=== PATIENT | male | born 1955 | race Caucasian/White ===

== ENCOUNTER 2021-09-26 12:55 | Inpatient (IN) ==
[2021-09-26 16:12] LABS: Basophils # 0.1 10*3/uL (0.0-0.2); Basophils % 0.4 % (0.0-0.8); Eosinophils # 0.2 10*3/uL (0.0-0.87); Eosinophils % 1.3 % (0.00-10.9); Hematocrit 49.9 VOL% (42.0-52.0); Hemoglobin 16.3 GM/DL (14.0-18.0); Immature Granulocytes % 0.4 %; Immature Granulocytes Absolute 0.06 #; Lymphocytes # 1.2 10*3/uL (1.4-4.0); Lymphocytes % 8.7 % (21.2-54.2); Mean Corpuscular HGB Conc 32.7 GM/DL (32-36); Mean Corpuscular Volume 88.2 FL (87-102); Mean Platelet Volume 10.7 FL (9.6-12.0); Monocytes # 0.9 10*3/uL (0.11-0.8); Monocytes % 6.7 % (1.7-12.7); Neutrophils % 82.5 % (38.7-73.9); Platelet Count 291 T/CUMM (130-400); Red Blood Count 5.66 MC/CUMM (3.8-5.5); Red Cell Distribution Width 13.3 % (9.3-17.3); White Blood Count 13.6 T/CUMM (4-12)
[2021-09-26] MEDS ORDERED: LACTATED RINGERS 1,000 ML IV ONE (16:24)
[2021-09-26 16:31] LABS: Alanine Aminotransferase 23 U/L (16-61); Albumin 3.9 G/DL (3.4-5.0); Alkaline Phosphatase 103 U/L (45-117); Aspartate Amino Transferase 14 U/L (0-37); Bilirubin,Total < 0.39 MG/DL (0.20-1.00); Blood Urea Nitrogen 26 MG/DL (7-18); Calcium 9.9 MG/DL (8.5-10.1); Carbon Dioxide 32 MMOL/L (21-32); Chloride 105 MMOL/L (98-107); Glucose 139 MG/DL (74-106); Osmolality,Calculated 283.5 MOS/KG (273-304); Potassium 4.1 MMOL/L (3.5-5.1); Sodium 139 MMOL/L (136-145); Total Protein 8.6 G/DL (6.4-8.2)
[2021-09-26] MEDS ORDERED: ONDANSETRON 4 MG/2 ML VIAL IV STA (16:32)
[2021-09-26 16:48] LABS: Arterial Base Excess iSTAT 4 MMOL/L (-2.5-2.5); Arterial Bicarbonate iSTAT 34.5 MMOL/L (20-26); Arterial O2 Saturation iSTAT 94 % (95-100); Arterial PCO2 iSTAT 77 MM HG (35-48); Arterial PO2 iSTAT 87 MM HG (80-95); Arterial Total CO2 iSTAT 37 MMO/L (23-27); Arterial pH iSTAT 7.261 (7.35-7.45)
[2021-09-26] MEDS ORDERED: ALUMINUM/MAGNES/SIMETH MAX STR 30 ML UDCUP PO PRN (17:59)
[2021-09-26] MEDS ORDERED: ONDANSETRON 4 MG/2 ML VIAL IV PRN (17:59)
[2021-09-26] MEDS ORDERED: ALBUTEROL/IPRATROPIUM 3 ML NEB RESP TX PRN (17:59)
[2021-09-26] MEDS ORDERED: BISACODYL 5 MG TABLET PO PRN (17:59)
[2021-09-26] MEDS ORDERED: PROMETHAZINE 25 MG/1 ML VIAL IM PRN (17:59)
[2021-09-26 19:08] LABS: ABG Base Excess 3.5 MMOL/L (-2.5-2.5); ABG HCO3 27.5 MMOL/L (20-26); ABG Oxygen Saturation 97.8 % (95-100); ABG PCO2 67.9 MM HG (35-48); ABG PH 7.294 (7.35-7.45); ABG TCO2 28.6 MMOL/L (23-27)
[2021-09-26] MEDS: LACTATED RINGERS 1,000 ML IV SCH (19:10)
[2021-09-26 19:42] LABS: Barbiturates Screen,Urine Negative (Negative); Benzodiazepines Screen,Urine Negative (Negative); Cannabinoid Screen,Urine Negative (Negative); Opiate Screen,Urine Negative (Negative); Phencyclidine Screen,Urine Negative (Negative)
[2021-09-26] MEDS: cefTRIAXone 1,000 MG in SODIUM CHLORIDE 0.9% 100 ML IV SCH (22:52)
[2021-09-26] MEDS: ENOXAPARIN 40 MG/0.4 ML SYRINGE SUBCUT SCH (22:54)
[2021-09-26] MEDS: PANTOPRAZOLE 40 MG VIAL IV SCH (23:35)
[2021-09-27 05:48] LABS: Alanine Aminotransferase 18 U/L (16-61); Albumin 3.2 G/DL (3.4-5.0); Alkaline Phosphatase 79 U/L (45-117); Aspartate Amino Transferase 13 U/L (0-37); Bilirubin,Total < 0.39 MG/DL (0.20-1.00); Blood Urea Nitrogen 23 MG/DL (7-18); Calcium 9.4 MG/DL (8.5-10.1); Carbon Dioxide 30 MMOL/L (21-32); Chloride 104 MMOL/L (98-107); Cholesterol 111 MG/DL (50-200); Glucose 103 MG/DL (74-106); HDL Cholesterol 43 MG/DL (40-60); Osmolality,Calculated 284.3 MOS/KG (273-304); Potassium 3.5 MMOL/L (3.5-5.1); Risk Ratio 2.58; Sodium 141 MMOL/L (136-145); Total Protein 6.8 G/DL (6.4-8.2); Triglycerides 106 MG/DL (2-150); VLDL Cholesterol 21.2 MG/DL
[2021-09-27 06:22] LABS: Basophils % 0.4 % (0.0-0.8); Eosinophils # 0.1 10*3/uL (0.0-0.87); Eosinophils % 0.6 % (0.00-10.9); Hematocrit 42.2 VOL% (42.0-52.0); Immature Granulocytes % 1.6 %; Immature Granulocytes Absolute 0.15 #; Lymphocytes # 1.4 10*3/uL (1.4-4.0); Lymphocytes % 15.3 % (21.2-54.2); Mean Platelet Volume 11.7 FL (9.6-12.0); Monocytes # 0.9 10*3/uL (0.11-0.8); Monocytes % 9.2 % (1.7-12.7); Neutrophils % 72.9 % (38.7-73.9); Platelet Count 242 T/CUMM (130-400); Red Blood Count 4.74 MC/CUMM (3.8-5.5); Red Cell Distribution Width 13.4 % (9.3-17.3)
[2021-09-27 06:23] LABS: Hemoglobin 13.5 GM/DL (14.0-18.0); White Blood Count 9.4 T/CUMM (4-12)
[2021-09-27] MEDS ORDERED: PANTOPRAZOLE 40 MG TABLET PO SCH (06:30)
[2021-09-27 06:34] LABS: Folate > 24.00 NG/ML (5.38-24.0); Vitamin B12 352 PG/ML (211-911)
[2021-09-27 07:43] LABS: Bacteria,Urine Occasional /HPF (Few); Mucus,Urine Occasional /LPF (Occasional); RBC,Urine 2 /HPF (0-4); Squamous Epithelial Cell,Urine Occasional /HPF (0-10)
[2021-09-27 07:44] LABS: Glucose,Urine (UA) Negative (Negative); Ketones,Urine 40 mg/dL (Negative); Nitrite,Urine Negative (Negative); Protein,Urine Negative (Negative); Urine Appearance Clear (Clear); Urine Color Yellow (Yellow); Urine Specific Gravity 1.025 (1.001-1.035); Urine pH 5.5 (4.5-8.0)
[2021-09-27 07:45] LABS: Bilirubin,Urine Negative (Negative); Blood, Urine Negative (Negative); Urine Urobilinogen 0.2 eU/dL (<2.0)
[2021-09-27] MEDS ORDERED: LACTULOSE 20 GM/30 ML UDCUP PO SCH (09:00)
[2021-09-27] MEDS ORDERED: ROSUVASTATIN 10 MG TABLET PO SCH (09:00)
[2021-09-27] MEDS: ASPIRIN EC 81 MG TABLET PO SCH (10:14)
[2021-09-27] MEDS: MONTELUKAST 10 MG TABLET PO SCH (10:14)
[2021-09-27] MEDS: TAMSULOSIN 0.4 MG CAPSULE PO SCH (10:14)
[2021-09-27] MEDS: amLODIPine 10 MG TABLET PO SCH (10:14)
[2021-09-27] MEDS: acetaZOLAMIDE 250 MG TABLET PO SCH (10:14)
[2021-09-27] MEDS: INDAPAMIDE 2.5 MG TABLET PO SCH (10:17)
[2021-09-27] MEDS: PANTOPRAZOLE 40 MG VIAL IV SCH ×2 (10:20→21:11)
[2021-09-27 11:46] LABS: Arterial Base Excess iSTAT 7 MMOL/L (-2.5-2.5); Arterial Bicarbonate iSTAT 34.9 MMOL/L (20-26); Arterial O2 Saturation iSTAT 97 % (95-100); Arterial PCO2 iSTAT 65 MM HG (35-48); Arterial PO2 iSTAT 100 MM HG (80-95); Arterial Total CO2 iSTAT 37 MMO/L (23-27); Arterial pH iSTAT 7.339 (7.35-7.45)
[2021-09-27] MEDS: LACTATED RINGERS 1,000 ML IV SCH (14:53)
[2021-09-27] MEDS: cefTRIAXone 1,000 MG in SODIUM CHLORIDE 0.9% 100 ML IV SCH (21:15)
[2021-09-27] MEDS: ENOXAPARIN 40 MG/0.4 ML SYRINGE SUBCUT SCH (21:15)
[2021-09-27] MEDS: ROSUVASTATIN 10 MG TABLET PO SCH (21:17)
[2021-09-28] MEDS: LACTATED RINGERS 1,000 ML IV SCH ×4 (00:29→23:16)
[2021-09-28 05:22] LABS: Basophils # 0.1 10*3/uL (0.0-0.2); Basophils % 0.7 % (0.0-0.8); Eosinophils # 0.4 10*3/uL (0.0-0.87); Eosinophils % 5.4 % (0.00-10.9); Hematocrit 37.9 VOL% (42.0-52.0); Hemoglobin 12.1 GM/DL (14.0-18.0); Immature Granulocytes % 0.4 %; Immature Granulocytes Absolute 0.03 #; Lymphocytes # 1.8 10*3/uL (1.4-4.0); Lymphocytes % 26.1 % (21.2-54.2); Mean Corpuscular HGB Conc 31.9 GM/DL (32-36); Mean Corpuscular Volume 88.1 FL (87-102); Mean Platelet Volume 11.2 FL (9.6-12.0); Monocytes # 0.6 10*3/uL (0.11-0.8); Monocytes % 8.8 % (1.7-12.7); Neutrophils % 58.6 % (38.7-73.9); Platelet Count 194 T/CUMM (130-400); Red Cell Distribution Width 13.2 % (9.3-17.3); White Blood Count 7.1 T/CUMM (4-12)
[2021-09-28 05:50] LABS: Albumin 2.7 G/DL (3.4-5.0); Bilirubin,Total 0.4 MG/DL (0.20-1.00); Calcium 8.6 MG/DL (8.5-10.1); Osmolality,Calculated 283.3 MOS/KG (273-304); Potassium 3.2 MMOL/L (3.5-5.1); Total Protein 5.8 G/DL (6.4-8.2)
[2021-09-28] MEDS ORDERED: POTASSIUM CHLORIDE 20 MEQ TABLET PO ONE (07:53)
[2021-09-28] MEDS: TAMSULOSIN 0.4 MG CAPSULE PO SCH (09:34)
[2021-09-28] MEDS: PANTOPRAZOLE 40 MG VIAL IV SCH ×2 (09:34→21:38)
[2021-09-28] MEDS: MONTELUKAST 10 MG TABLET PO SCH (09:35)
[2021-09-28] MEDS: amLODIPine 10 MG TABLET PO SCH (09:35)
[2021-09-28] MEDS: acetaZOLAMIDE 250 MG TABLET PO SCH (09:35)
[2021-09-28] MEDS: INDAPAMIDE 2.5 MG TABLET PO SCH (09:35)
[2021-09-28] MEDS: ASPIRIN EC 81 MG TABLET PO SCH (09:48)
[2021-09-28] MEDS: ROSUVASTATIN 10 MG TABLET PO SCH (21:38)
[2021-09-28] MEDS: ENOXAPARIN 40 MG/0.4 ML SYRINGE SUBCUT SCH (21:38)
[2021-09-28] MEDS: cefTRIAXone 1,000 MG in SODIUM CHLORIDE 0.9% 100 ML IV SCH (21:38)
[2021-09-29] MEDS: LACTATED RINGERS 1,000 ML IV SCH ×3 (00:21→21:20)
[2021-09-29 03:57] LABS: ABG HCO3 25.3 MMOL/L (20-26); ABG Oxygen Saturation 98.2 % (95-100); ABG PCO2 47.7 MM HG (35-48); ABG PH 7.361 (7.35-7.45); ABG TCO2 23.9 MMOL/L (23-27); Allen Test Positive; Pt O2 Delivery Device BIPAP
[2021-09-29 04:59] LABS: Basophils # 0.1 10*3/uL (0.0-0.2); Basophils % 0.9 % (0.0-0.8); Eosinophils # 0.4 10*3/uL (0.0-0.87); Eosinophils % 5.4 % (0.00-10.9); Hemoglobin 12.3 GM/DL (14.0-18.0); Immature Granulocytes % 0.5 %; Immature Granulocytes Absolute 0.03 #; Lymphocytes # 1.8 10*3/uL (1.4-4.0); Mean Corpuscular HGB Conc 32.4 GM/DL (32-36); Mean Corpuscular Volume 87.6 FL (87-102); Mean Platelet Volume 11.1 FL (9.6-12.0); Monocytes # 0.6 10*3/uL (0.11-0.8); Monocytes % 9.5 % (1.7-12.7); Neutrophils % 56.7 % (38.7-73.9); Platelet Count 221 T/CUMM (130-400); Red Blood Count 4.34 MC/CUMM (3.8-5.5); Red Cell Distribution Width 13.2 % (9.3-17.3); White Blood Count 6.5 T/CUMM (4-12)
[2021-09-29 05:45] LABS: Alanine Aminotransferase 17 U/L (16-61); Albumin 2.9 G/DL (3.4-5.0); Alkaline Phosphatase 66 U/L (45-117); Aspartate Amino Transferase 12 U/L (0-37); Bilirubin,Total < 0.39 MG/DL (0.20-1.00); Blood Urea Nitrogen 16 MG/DL (7-18); Calcium 8.6 MG/DL (8.5-10.1); Carbon Dioxide 27 MMOL/L (21-32); Chloride 108 MMOL/L (98-107); Glucose 122 MG/DL (74-106); Osmolality,Calculated 284.1 MOS/KG (273-304); Potassium 3.7 MMOL/L (3.5-5.1); Sodium 142 MMOL/L (136-145); Total Protein 6.3 G/DL (6.4-8.2)
[2021-09-29] MEDS: amLODIPine 10 MG TABLET PO SCH (09:39)
[2021-09-29] MEDS: MONTELUKAST 10 MG TABLET PO SCH (09:39)
[2021-09-29] MEDS: ASPIRIN EC 81 MG TABLET PO SCH (09:39)
[2021-09-29] MEDS: PANTOPRAZOLE 40 MG VIAL IV SCH (09:39)
[2021-09-29] MEDS: acetaZOLAMIDE 250 MG TABLET PO SCH (09:39)
[2021-09-29] MEDS: TAMSULOSIN 0.4 MG CAPSULE PO SCH (09:40)
[2021-09-29] MEDS: INDAPAMIDE 2.5 MG TABLET PO SCH (09:40)
[2021-09-29 11:50] LABS: Thyroid Stimulating Hormone 3.08 uIU/ml (0.358-3.74)
[2021-09-29 12:33] LABS: Hepatitis B Core IgM Quant 0.17 Index; Hepatitis B Surface Ag Quant < 0.10 Index; Hepatitis B Surface Ag Result Non-Reactive (NonReactive); Hepatitis C Virus Ab Quant 0.05 Index; Hepatitis C Virus Ab Result Non-Reactive (NonReactive)
[2021-09-29] MEDS ORDERED: LACTULOSE 20 GM/30 ML UDCUP PO SCH (13:30)
[2021-09-29 13:51] LABS: PT Patient Result 10.9 SECS (10.5-12.0); Partial Thromboplastin Time 30.8 SECS (23.8-32.1)
[2021-09-29] MEDS: DICLOXACILLIN 250 MG CAPSULE PO SCH ×2 (18:34→21:19)
[2021-09-29] MEDS: LACTULOSE 20 GM/30 ML UDCUP PO SCH (21:19)
[2021-09-29] MEDS: ENOXAPARIN 40 MG/0.4 ML SYRINGE SUBCUT SCH (21:19)
[2021-09-29] MEDS: ROSUVASTATIN 10 MG TABLET PO SCH (21:19)
[2021-09-30] MEDS: LACTATED RINGERS 1,000 ML IV SCH ×2 (04:10→06:15)
[2021-09-30 05:52] LABS: Basophils # 0.1 10*3/uL (0.0-0.2); Basophils % 0.9 % (0.0-0.8); Eosinophils # 0.4 10*3/uL (0.0-0.87); Eosinophils % 4.6 % (0.00-10.9); Hematocrit 42.9 VOL% (42.0-52.0); Hemoglobin 14.2 GM/DL (14.0-18.0); Immature Granulocytes % 0.5 %; Immature Granulocytes Absolute 0.04 #; Lymphocytes # 1.8 10*3/uL (1.4-4.0); Lymphocytes % 23.2 % (21.2-54.2); Mean Corpuscular HGB Conc 33.1 GM/DL (32-36); Mean Platelet Volume 10.8 FL (9.6-12.0); Monocytes # 0.7 10*3/uL (0.11-0.8); Neutrophils % 61.8 % (38.7-73.9); Platelet Count 239 T/CUMM (130-400); Red Blood Count 4.93 MC/CUMM (3.8-5.5); Red Cell Distribution Width 13.2 % (9.3-17.3); White Blood Count 7.9 T/CUMM (4-12)
[2021-09-30 06:11] LABS: Alanine Aminotransferase 26 U/L (16-61); Albumin 3.2 G/DL (3.4-5.0); Alkaline Phosphatase 78 U/L (45-117); Aspartate Amino Transferase 17 U/L (0-37); Bilirubin,Total < 0.39 MG/DL (0.20-1.00); Blood Urea Nitrogen 16 MG/DL (7-18); Calcium 9.1 MG/DL (8.5-10.1); Carbon Dioxide 27 MMOL/L (21-32); Chloride 108 MMOL/L (98-107); Glucose 126 MG/DL (74-106); Potassium 3.4 MMOL/L (3.5-5.1); Sodium 143 MMOL/L (136-145); Total Protein 7.2 G/DL (6.4-8.2)
[2021-09-30] MEDS: amLODIPine 10 MG TABLET PO SCH (09:46)
[2021-09-30] MEDS: INDAPAMIDE 2.5 MG TABLET PO SCH (09:46)
[2021-09-30] MEDS: TAMSULOSIN 0.4 MG CAPSULE PO SCH (09:46)
[2021-09-30] MEDS: DICLOXACILLIN 250 MG CAPSULE PO SCH ×3 (09:46→21:28)
[2021-09-30] MEDS: ASPIRIN EC 81 MG TABLET PO SCH (09:46)
[2021-09-30] MEDS: MONTELUKAST 10 MG TABLET PO SCH (09:46)
[2021-09-30] MEDS: PANTOPRAZOLE 40 MG TABLET PO SCH (09:46)
[2021-09-30] MEDS: POTASSIUM CHLORIDE 10 MEQ TABLET PO SCH (09:46)
[2021-09-30] MEDS: acetaZOLAMIDE 250 MG TABLET PO SCH (09:46)
[2021-09-30] MEDS: LACTULOSE 20 GM/30 ML UDCUP PO SCH ×3 (09:47→21:26)
[2021-09-30 13:46] LABS: Antinuclear Ab, S 0.3 U
[2021-09-30] MEDS: ENOXAPARIN 40 MG/0.4 ML SYRINGE SUBCUT SCH (21:27)
[2021-09-30] MEDS: ROSUVASTATIN 10 MG TABLET PO SCH (21:27)
[2021-10-01 04:52] LABS: Basophils % 0.5 % (0.0-0.8); Eosinophils # 0.3 10*3/uL (0.0-0.87); Eosinophils % 3.2 % (0.00-10.9); Hemoglobin 13.9 GM/DL (14.0-18.0); Immature Granulocytes % 0.5 %; Immature Granulocytes Absolute 0.04 #; Lymphocytes # 1.8 10*3/uL (1.4-4.0); Lymphocytes % 22.4 % (21.2-54.2); Mean Corpuscular HGB Conc 32.3 GM/DL (32-36); Mean Corpuscular Volume 87.6 FL (87-102); Mean Platelet Volume 11.2 FL (9.6-12.0); Monocytes # 0.6 10*3/uL (0.11-0.8); Monocytes % 7.3 % (1.7-12.7); Neutrophils % 66.1 % (38.7-73.9); Platelet Count 224 T/CUMM (130-400); Red Blood Count 4.91 MC/CUMM (3.8-5.5); Red Cell Distribution Width 13.3 % (9.3-17.3); White Blood Count 8.1 T/CUMM (4-12)
[2021-10-01 05:15] LABS: Alanine Aminotransferase 33 U/L (16-61); Albumin 3.3 G/DL (3.4-5.0); Alkaline Phosphatase 74 U/L (45-117); Aspartate Amino Transferase 23 U/L (0-37); Bilirubin,Total < 0.39 MG/DL (0.20-1.00); Blood Urea Nitrogen 14 MG/DL (7-18); Calcium 9.3 MG/DL (8.5-10.1); Carbon Dioxide 27 MMOL/L (21-32); Chloride 107 MMOL/L (98-107); Glucose 126 MG/DL (74-106); Osmolality,Calculated 283.3 MOS/KG (273-304); Potassium 3.3 MMOL/L (3.5-5.1); Sodium 141 MMOL/L (136-145); Total Protein 6.8 G/DL (6.4-8.2)
[2021-10-01] MEDS ORDERED: LACTULOSE 20 GM/30 ML UDCUP PO SCH (09:00)
[2021-10-01] MEDS: acetaZOLAMIDE 250 MG TABLET PO SCH (09:01)
[2021-10-01] MEDS: INDAPAMIDE 2.5 MG TABLET PO SCH (09:01)
[2021-10-01] MEDS: TAMSULOSIN 0.4 MG CAPSULE PO SCH (09:01)
[2021-10-01] MEDS: amLODIPine 10 MG TABLET PO SCH (09:01)
[2021-10-01] MEDS: POTASSIUM CHLORIDE 10 MEQ TABLET PO SCH (09:01)
[2021-10-01] MEDS: DICLOXACILLIN 250 MG CAPSULE PO SCH ×2 (09:01→15:29)
[2021-10-01] MEDS: MONTELUKAST 10 MG TABLET PO SCH (09:02)
[2021-10-01] MEDS: ASPIRIN EC 81 MG TABLET PO SCH (09:02)
[2021-10-01] MEDS: PANTOPRAZOLE 40 MG TABLET PO SCH (09:02)
[2021-10-01 13:06] VITALS: BP 119/74
== END 2021-10-01 15:54 | disposition home or self-care (01) | DRG 189 ==
LOC: N.ED 12:55 → SUATTDRO 18:00 → N.EDINP 18:00 → N.TELEN 19:32
PROVIDERS: ADMIT Internal Medicine; ATTEND Internal Medicine